=== PATIENT | male | born 1940 | race American Indian/Alaskan Native ===

== ENCOUNTER 2019-02-27 13:20 | Inpatient (IN) | payer MEDICARE ==
[~2019-02-27] VITALS: Ht 177.8 cm; Wt 91.1 kg
[2019-02-27 13:22] VITALS: BP 222/81
[2019-02-27] MEDS ORDERED: FISH OIL 1,001000 M2 PO (13:26)
[2019-02-27] MEDS ORDERED: PLAVIX 75 MG TA75 M1 PO (13:27)
[2019-02-27] MEDS ORDERED: CENTRUM SILVER1 EAC2 PO (13:27)
[2019-02-27] MEDS ORDERED: ASPIR 8181 MG PO (13:27)
[2019-02-27] MEDS ORDERED: COZAAR 25 MG TA25 M1 PO (13:27)
[2019-02-27] MEDS ORDERED: NOVOLOG100 UNIT/1 SUBQ (13:28)
[2019-02-27 13:41] LABS: ABSOLUTE EOSINOPHILS 0.2 thou/uL (0.0-0.7); ABSOLUTE MONOCYTES 0.5 thou/uL (0.0-1.2); ABSOLUTE NEUTROPHILS 4.6 thou/uL (1.6-8.1); BASOPHILS 0.3 %; EOSINOPHILS 3.3 %; LYMPHOCYTES 27.4 %; MCH 30.3 pg (26.0-34.0); MCHC 33.3 g/dL (28.0-37.0); MCV 90.9 fL (80.0-100.0); MPV 7.2 fl. (7.2-11.1); NUCLEATED RBCS 0 /100WBC; PLATELET COUNT* 248 thou/uL (150-400); RBC 4.62 mil/uL (4.50-6.00); RDW-CV 13.7 % (10.5-14.5); WBC 7.4 thou/uL (4.0-11.0)
[2019-02-27 13:51] LABS: ANION GAP 6 mmol/L (7-16); APTT 26.6 Seconds (25.0-31.3); BUN 21 mg/dL (7-18); CALCIUM 8.9 mg/dL (8.5-10.1); CHLORIDE 103 mmol/L (98-107); CO2 28 mmol/L (21-32); CREATININE 1.2 mg/dL (0.6-1.3); GLUCOSE 148 mg/dL (70-99); POTASSIUM 4.5 mmol/L (3.5-5.1); PROTIME 10.4 Seconds (9.20-11.50); SODIUM 137 mmol/L (136-145)
[2019-02-27 14:15] LABS: ALBUMIN 3.3 g/dL (3.4-5.0); ALKALINE PHOSPHATASE 81 U/L (46-116); CK-MB MASS 2.7 ng/mL (<0.5-3.6); NT-PRO BRAIN NAT PEPTIDE 1018 pg/mL (<300); SGOT 15 U/L (15-37); SGPT 26 U/L (30-65); TOTAL BILIRUBIN 0.3 mg/dL (<0.1-1.0); TROPONIN-I LEVEL <0.06 ng/mL (<0.06)
[2019-02-27 15:13] VITALS: BP 171/63
--- NOTE | 2019-02-27 15:20 | NUR ---
ER ADMIT TO RM 209 ER REPORT GIVEN BY TELEPHONE PRIOR NTO ARRIVAL ASSITED TO BED DENIES PAIN
--- NOTE | 2019-02-27 15:26 | EKG ---
[place] [address] ELECTROCARDIOGRAM REPORT Name: ROSEMARY CRUZ Room: [address] ADM IN M.R.#: [id number] Admission: 02/27/19 Attend Phys: Kandis Cruz Discharge: Date of : 42 Report #: [id number] THIS REPORT FOR: //name// [facility] ED Test Date: 2019-02-27 Test Time: 13:46:21 Pat Name: ROSEMARY DRIVERAVER Department: Room: [facility] Gender: M Electrician Master: TDOWNS : 1940 Requested By: Delfin Francis Order Number: [id number] MD: Rosemary Givens Measurements Intervals [place] Rate: 53 P: 62 [place]: 193 QRS: -9 QRSD: 89 T: 32 QT: 414 QTc: 389 Interpretive Statements Sinus bradycardia Inferior infarct, old Probable anterior infarct, old No previous ECG available for comparison Electronically Signed On 02-27-2019 15:26:26 CDT by Rosemary Givens [email or web address] <ELECTRONICALLY SIGNED> By: Rosemary Givens MD, [facility] 02/27/19 1526 1346 1346 Rosemary Givens MD, FACC /EPI
[2019-02-27 15:30] VITALS: BP 180/69
[2019-02-27] MEDS ORDERED: VITAMIN E400 UNIT PO (17:11)
[2019-02-27 20:00] VITALS: BP 162/46
[2019-02-27 22:39] LABS: URINE BILIRUBIN NEGATIVE (Negative); URINE BLOOD NEGATIVE (Negative); URINE CLARITY CLEAR; URINE COLOR YELLOW; URINE GLUCOSE-RANDOM NEGATIVE (Negative); URINE KETONES NEGATIVE (Negative); URINE LEUKOCYTES-REFLEX NEGATIVE (Negative); URINE NITRITE-REFLEX NEGATIVE (Negative); URINE PROTEIN 2+ (Negative); URINE UROBILINOGEN 0.2 E.U./dl (0.2-1.0)
[2019-02-27 23:00] LABS: BACTERIA-REFLEX 1-9 Few /HPF (None Seen); CASTS None Seen /LPF (None Seen); CRYSTALS None Seen /LPF (None Seen); SQUAMOUS 0-3 Few /LPF (0-3); URINE RBC 0-2 Rare /HPF (0-2); URINE WBC-REFLEX 0-5 Rare /HPF (0-5)
[2019-02-28] VITALS: BP 161/50
[2019-02-28 04:00] VITALS: BP 172/58
[2019-02-28 05:21] LABS: HEMATOCRIT 37.7 % (42.0-52.0); HEMOGLOBIN 12.6 gm/dL (14.0-18.0); MCH 30.3 pg (26.0-34.0); MCHC 33.6 g/dL (28.0-37.0); MCV 90.3 fL (80.0-100.0); MPV 7.3 fl. (7.2-11.1); RBC 4.17 mil/uL (4.50-6.00); RDW-CV 13.9 % (10.5-14.5); WBC 8.1 thou/uL (4.0-11.0)
[2019-02-28 05:32] LABS: CALCIUM 8.9 mg/dL (8.5-10.1); CREATININE 1.2 mg/dL (0.6-1.3); POTASSIUM 4.3 mmol/L (3.5-5.1)
[2019-02-28 05:36] LABS: CHOLESTEROL 190 mg/dL (<200); HDL CHOLESTEROL 33 mg/dL (>40); LDL CHOLESTEROL 128 mg/dL (<100); TC:HDL 5.8 Ratio (Not establshd); TRIGLYCERIDE 147 mg/dL (<150); VLDL 29 mg/dL (<40)
[2019-02-28 05:43] LABS: SERUM ASSESSMENT Clear
--- NOTE | 2019-02-28 07:48 | NUR ---
PT CARE ASSUMED AT 1930. SAT MAINTAINED IN RA. ALERT AND ORIENTED X4. CALL LIGHT WITHIN REACH AND BED IN LOW POSIITON. PRESENT AT BEDSIDE. DENIES PAIN AND SOB. PT PASSED THE BEDSIDE SWALLOW TEST. HOURLY ROUNDING DONE FOR PT SAFETY.
[2019-02-28 08:15] VITALS: BP 188/77
--- NOTE | 2019-02-28 08:15 | NUR ---
ASSUMED PT. CARE AND RECEIVED REPORT AT 0730. PT A/OX4, BP SLIGHTLY ELEVATED, BUT WITH + FOR STROKE. ON RA @ 97%. MONITOR ON TRACING SB. PT. AND REPORT WORSENING LEFT ARM/LEG WEAKNESS OVER NIGHT. NIH COMPLETED, REFER TO CHARTING. PT. INITIALLY WITH NO RESISTANCE TO GRAVITY, HOWEVER DURING ASSESSMENT WITH PHYSICIAN PT. HAD ONLY DRIFT OF LEFT ARM. FULL ASSESSMENT COMPLETED, REFER TO CHARTING. PT. SPOUSE AT BEDSIDE. WILL CONTINUE WITH PLAN OF CARE.
[2019-02-28 11:59] VITALS: BP 186/65
--- NOTE | 2019-02-28 14:18 | 2DMMODE ---
[place] [address] 2 D/M-MODE ECHOCARDIOGRAM Name: RAPPAHANNOCKROSEMARY JOSEPH Room: [address] IN [facility]#: [id number] Admission: 02/27/19 Attend Phys: Micky Michaels Discharge: Date of : 42 Date of Service: 02/28/19 1418 Report #: [id number] THIS REPORT FOR: //name// APPROVED REPORT Study performed: 02/28/2019 11:16:33 EXAM: Comprehensive 2D, Doppler, and color-flow Echocardiogram Patient Location: In-Patient Room #: 209 Status: routine BSA: 2.15 HR: 64 bpm BP: 172/58 mmHg Rhythm: NSR Other Information Study Quality: Adequate Indications CVA/TIA Echo Enhancing Agent Indication: Rule out Shunt Agent(s) / Amount(s) Used: Agitated Saline 10 cc 2D Dimensions IVSd: 11.95 (7-11mm) LVOT Diam: 20.41 (18-24mm) LVDd: 55.24 mm PWd: 11.23 (7-11mm) Ascending Ao: 33.36 (22-36mm) LVDs: 35.97 (25-40mm) Aortic Root: 34.92 mm Volumes Left Atrial Volume (Systole) LA ESV Index: 28.70 mL/m2 Aortic Valve AoV Peak Dwayne.: 1.36 m/s AO Peak Gr.: 7.41 mmHg LVOT Max P.54 mmHg AO Mean Gr.: 3.67 mmHg LVOT Mean P.00 mmHg LVOT Max V: 1.07 m/s AO V2 VTI: 26.53 cm LVOT Mean V: 0.64 m/s ROS (VTI): 3.18 cm2 LVOT V1 VTI: 25.82 [place] [address] 2 D/M-MODE ECHOCARDIOGRAM Name: ROSEMARY CRUZ Room: [address] IN .R.#: [id number] Admission: 02/27/19 Attend Phys: Micky Michaels Discharge: Date of : 42 Date of Service: 02/28/19 1418 Report #: [id number] Mitral Valve E/A Ratio: 0.57 MV Decel. Time: 225.84 ms MV E Max Dwayne.: 0.78 m/s MV PHT: 65.49 ms MVA (PHT): 3.36 cm2 TDI E/Lateral E': 7.80 E/Medial E': 9.75 Medial E' Dwayne.: 0.08 m/s Lateral E' Dwayne.: 0.10 m/s Pulmonary Valve PV Peak Dwayne.: 1.03 m/s PV Peak Gr.: 4.24 mmHg Left Ventricle The left ventricle is normal size. There is normal LV segmental wall motion. Mild concentric left ventricular hypertrophy. Left ventricular systolic function is normal. The left ventricular ejection fraction is within the normal range. LVEF is 55-60%. Grade I - abnormal relaxation pattern. Right Ventricle The right ventricle is normal size. The right ventricular systolic function is normal. Atria The left atrium size is normal. Interatrial septum is intact without evidence of ASD or PFO. The right atrium size is normal. Aortic Valve The Aortic valve is sclerotic. No aortic regurgitation is present. There is no aortic valvular stenosis. Mitral Valve The mitral valve is normal in structure. trace mitral regurgitation. No evidence of mitral valve stenosis. Tricuspid Valve The tricuspid valve is normal in structure. Unable to assess PA pressure. Trace tricuspid regurgitation. Pulmonic Valve The pulmonary valve is normal in structure. There is no pulmon[place] [address] 2 D/M-MODE ECHOCARDIOGRAM Name: ROSEMARY CRUZ Room: [address] IN [facility]#: [id number] Admission: 02/27/19 Attend Phys: Micky Michaels Discharge: Date of : 42 Date of Service: 02/28/19 1418 Report #: [id number] Great Vessels The aortic root is normal in size. IVC is normal in size and collapses >50% with inspiration. Pericardium There is no pericardial effusion. <Conclusion> Mild concentric left ventricular hypertrophy. LVEF is 55-60%. Interatrial septum is intact without evidence of ASD or PFO. <ELECTRONICALLY SIGNED> By: Rosemary Givens MD, [facility] 02/28/19 1418 1418 1418 Rosemary Givens MD, FACC /INF
--- NOTE | 2019-02-28 14:57 | NUR ---
CM spoke with Pt's in [facility]. Pt resides at home with . They are here visiting there dtr in the area, they are from [place]. Pt had been active and independent prior to this hospital stay. No DME. Hx of HH and SNF post CVA in 2013 in [place]. Per , anticipate that Pt will need skilled v. rehab at [place], is hopeful that Pt will be able to dc to [place] to receive therapy, but understands that Pt may need to stay in the area for awhile to receive therapy. Pt/ were planning to return to [place] tomorrow. Following for disposition.
[2019-02-28 16:53] VITALS: BP 192/71
[2019-02-28 19:50] VITALS: BP 147/51
[2019-03-01] VITALS (14 sets, daily range): BP systolic 98–207; BP diastolic 66–129
[2019-03-01 02:06] LABS: GLYCOHEMOGLOBIN (HGB A1C) 7.4 % (4.8-5.6)
[2019-03-01 04:51] LABS: CALCIUM 9.3 mg/dL (8.5-10.1); CREATININE 1.1 mg/dL (0.6-1.3); POTASSIUM 3.8 mmol/L (3.5-5.1)
--- NOTE | 2019-03-01 10:45 | CON ---
[facility] [place] [facility] [address] [place] [address] CONSULTATION Name: ROSEMARY CRUZ Room: [address] IN M.R.#: [id number] Admission: 02/27/19 Attend Phys: Kandis Cruz Discharge: Date of : 42 Report #: [id number] THIS REPORT FOR: //name// CC: DEREK physician/PCP Micky Michaels DATE OF SERVICE: 02/27/2019 This patient was seen by me last night as well as this morning. This is a combined note. HISTORY OF PRESENT ILLNESS: This is a 79-year-old male patient. Both patient and the is a poor historian. He apparently was admitted with some confusion and he was somewhat unstable. This morning, he is complaining of some headache on the right side and some numbness on the left side. He underwent an MRI that demonstrated findings consistent with acute CVA. Symptoms are difficult to assess because this patient has trouble with the vision because of some complication and what he described as a hemorrhage in the eye. REVIEW OF SYSTEMS: A 14-point review of systems is positive for prior history of stent. He said he had a stroke a few years ago. He does not know how the stroke affected him. He says that he has a history of diabetes. He does not provide any other reliable history. That was his relevant 14-point review of system. PAST MEDICAL HISTORY: Positive for stroke, how did that affect him is not very clear. FAMILY HISTORY: Negative for early age stroke. SOCIAL HISTORY: He had family with them and I am not sure whether the patient or the family understands things well. PHYSICAL EXAMINATION: Indicate that this patient is alert. His memory is poor. I do not know what his baseline is. He has visual deficit, but I cannot tell because he has baseline visual deficit. He moves all 4 extremities. He is complaining of paraesthesia on the left side. No change in cardiac status. Blood pressure is 186/65, respirations 16, pulse is 52, and temperature is 98.6. LABORATORY DATA: Indicates a white count of 8.1 and sodium is 140. MRI was reviewed and it showed a stroke. His sed rate is normal. IMPRESSION: Occipital lobe stroke. He has some more symptoms. We will repeat the CAT scan to make sure the stroke did not become hemorrhagic. He is on combination of aspirin and Plavix and statin. Until we can document atrial fibrillation, I am not sure what else can be done; however, [place] [address] CONSULTATION Name: ROSEMARY CRUZ Room: [address] IN [facility]#: [id number] Admission: 02/27/19 Attend Phys: Kandis Cruz Discharge: Date of : 42 Report #: [id number] requires extensive workup to exclude the possibility of atrial fibrillation because this patient's stroke is in the posterior cerebral artery distribution and a source of embolization from the heart need to be excluded. more than 50 minutes of combined time was spent taking care of this patient and majority of that time was spent counseling and coordinating his care <ELECTRONICALLY SIGNED> By: Eladio Forrest MD 03/01/19 1045 1416 [id number] Forrest MD /nt
--- NOTE | 2019-03-01 11:14 | TEE ---
[place] [address] TRANSESOPHAGEAL ECHOCARDIOGRAM Name: ANTHONYROSEMARY Room: [address] IN [facility]#: [id number] Admission: 02/27/19 Attend Phys: Micky Michaels Discharge: Date of : 42 Date of Service: 03/01/19 1114 Report #: [id number] THIS REPORT FOR: //name// APPROVED REPORT Study performed: 03/01/2019 09:21:15 EXAM: Transesophageal Echocardiogram Patient Location: In-Patient Room #: [facility] Status: routine BSA: 2.14 HR: 77 bpm BP: 171/79 mmHg Rhythm: NSR Other Information Study Quality: Excellent Indications CVA/TIA Echo Enhancing Agent Indication: Rule out Shunt Agent(s) / Amount(s) Used: Agitated Saline 20 cc Comments: 2 BUBBLE STUDIES Procedure After obtaining informed consent, patient underwent transesophageal echo in the [employer]. Type of Sedation : Conscious Sedation Sedation was administered by Cary Matos RN. Sedation start time: 926 Case end Time: 941 Sedation was achieved intravenously with: Versed (4) Fentanyl (25) Transesophageal probe was inserted and advanced into esophagus without difficulty by Rosemary Givens MD, FACC. Echo enhancement indication: R/O Septal defect. Echo enhancement agent administered: Agitated Saline The OMAIRA was performed without complications. Throughout the procedure, the blood pressure, pulse oximetry, cardiac rhythm, and rate were monitored. The patient tolerated the procedure without adverse effects. Recovery from conscious sedation was uneventful and vital signs were stable. [address] [address] TRANSESOPHAGEAL ECHOCARDIOGRAM Name: ROSEMARY CRUZ Room: [address] IN [facility].#: [id number] Admission: 02/27/19 Attend Phys: Micky Michaels Discharge: Date of : 42 Date of Service: 03/01/19 1114 Report #: [id number] Left Ventricle The left ventricle is normal size. There is normal LV segmental wall motion. There is normal left ventricular wall thickness. Left ventricular systolic function is normal. The left ventricular ejection fraction is within the normal range. LVEF is 55-60%. Right Ventricle The right ventricle is normal size. The right ventricular systolic function is normal. Atria The left atrium size is normal. No thrombus is visualized in the left atrium or appendage. Interatrial septum is intact without evidence of ASD or PFO. The right atrium size is normal. Aortic Valve The aortic valve is normal in structure. No aortic regurgitation is present. There is no aortic valvular stenosis. Mitral Valve The mitral valve is normal in structure. There is no mitral valve regurgitation noted. No evidence of mitral valve stenosis. Tricuspid Valve The tricuspid valve is normal in structure. There is no tricuspid valve regurgitation noted. Pulmonic Valve The pulmonary valve is normal in structure. There is no pulmonic valvular regurgitation. Great Vessels The aortic root is normal in size. Pericardium There is no pericardial effusion. <Conclusion> LVEF is 55-60%. The left atrium size is normal. No thrombus is visualized in the left atrium or [address] [address] TRANSESOPHAGEAL ECHOCARDIOGRAM Name: ROSEMARY CRUZ Room: [address] IN [facility].#: [id number] Admission: 02/27/19 Attend Phys: Micky Michaels Discharge: Date of : 42 Date of Service: 03/01/19 111 Report #: [id number] appendage. Interatrial septum is intact without evidence of ASD or PFO. <ELECTRONICALLY SIGNED> By: Rosemary Givens MD, FACC 03/01/19 1114 13 13 Rosemary Givens MD, FACC /INF
--- NOTE | 2019-03-01 14:50 | CON ---
[facility] [address] [place] [address] CONSULTATION Name: ROSEMARY CRUZ Room: [address] IN M.R.#: [id number] Admission: 02/27/19 Attend Phys: Kandis Cruz Discharge: Date of : 42 Report #: [id number] THIS REPORT FOR: //name// CC: DEREK physician/PCP Micky Michaels DATE OF SERVICE: 02/28/2019 HISTORY OF PRESENT ILLNESS: The patient is a 79-year-old male who I was asked to see in the hospital today because of his history of coronary artery disease. Unfortunately, no old records are available. The patient has an extensive and complicated past medical history. He and his live in [place] and were visiting daughter here in [place]. He has had a long history of coronary artery disease. He has had multiple coronary artery stents including a stent placed in [place], [place] and [place], [place]. He has also had a previous stroke with left-sided weakness. He is not very active at this time. The patient was doing well until yesterday morning when he awakened, apparently was confused and unsteady. He had difficulty eating. His brought him to the Emergency Room. He was felt to have a stroke. Because of his history of coronary artery disease, Cardiology consultation was requested. The patient denies any recent chest pain. He does have some shortness of breath. Denied any palpitations, syncope, bleeding. PAST MEDICAL HISTORY: He has had tonsillectomy, glaucoma eye surgery. He has restless leg syndrome, diabetes, hypertension, hyperlipidemia. MEDICATIONS: Include losartan, aspirin, and Plavix. ALLERGIES: HE CANNOT TOLERATE STATIN DRUGS. FAMILY HISTORY: His father had a stroke. SOCIAL HISTORY: He is . He and his live in [place]. He is a coding file clerk. No smoking. Rarely drinks alcohol. REVIEW OF SYSTEMS: He has had no history of asthma. No history of liver disease, peptic ulcer disease, kidney disease, cancer, psychiatric illness, chronic skin condition. PHYSICAL EXAMINATION: GENERAL: Revealed an elderly male sitting in chair. He appeared in no distress. VITAL SIGNS: He had a blood pressure of 160/80, pulse 60. He is afebrile. HEENT: He was anicteric. Conjunctivae pink. Mucous membranes moist. NECK: Veins do not appear distended. Neck is supple. CHEST: [place] [address] CONSULTATION Name: ROSEMARY CRUZ Room: [address]#: [id number] Admission: 02/27/19 Attend Phys: Kandis Cruz Discharge: Date of : 42 Report #: [id number] CARDIOVASCULAR: Regular rate and rhythm. ABDOMEN: Obese. EXTREMITIES: Had no edema. SKIN: Cool and dry. NEUROLOGIC: He had weakness of the left arm and leg. His ECG showed sinus bradycardia, evidence of previous inferior infarction. His workup so far, he had an echocardiogram that showed left ventricular hypertrophy, ejection fraction of 55%. No evidence of intraatrial shunt by bubble study. His x-rays since he was admitted, he had a CT scan of the head that showed cerebral atrophy, no acute process. His chest x-ray showed cardiomegaly. MRA of the carotids showed no significant stenosis. MRI of the head showed scattered small acute areas of infarction involving the right posterior cerebral artery territory including the right occipital and corpus callosum as well as the thalamus. LABORATORY WORK: Sodium 140, creatinine 1.2, albumin 3.3. Troponin 0.06. BNP 1320. Cholesterol 190, triglyceride 147, HDL 33, LDL 128. White blood cell count 8.1, hemoglobin 12.6. IMPRESSION AND RECOMMENDATIONS: 1. Multiple strokes. No significant carotid stenosis. The patient has been on aspirin and Plavix. I would consider starting antiarrhythmic therapy. I would consider giving the patient an outpatient event recorder to monitor for atrial fibrillation. 2. Coronary artery disease. Previous stenting. No recent angina. 3. Diabetes. 4. Hypertension. The patient is on an ARB. 5. Hyperlipidemia. The patient cannot tolerate statin drugs. I would consider Zetia. 6. History of glaucoma. <ELECTRONICALLY SIGNED> By: Rosemary Givens MD, [facility] 03/01/19 1450 1518 [id number] Givens MD, FAC /nt
--- NOTE | 2019-03-01 18:30 | NUR ---
ASSUMED PT CARE AT 0700, PT A&O X4, LETHARGIC, WATER/WASTEWATER PROJECT MANAGER TRACING SINUS NICOLE-SINUS RHYTHM, HYPERTENSIVE, PRN MEDS ON BOARD WELL NEW ORDERS TO INCREASE BP MEDS, DR SANDS NOTIFIED OF DIFFERENCE BETWEEN BLOOD PRESSURES ON EACH ARM, LIMB ALERT PLACED ON LUE D/T LEFT SIDED WEAKNESS. PT HAD REPEAT MRI, RESULTS CHARTED, CONSULT FOR REHAB PLACED THIS SHIFT. HOURLY ROUNDING AND Q2 HOUR TURNS COMPLETED.
[2019-03-02] VITALS: BP 198/60
[2019-03-02 04:00] VITALS: BP 182/78
--- NOTE | 2019-03-02 06:36 | NUR ---
PT CARE ASSUMED AT 1930. SAT MAINTAINED IN . [facility] DONE AND CHARTED. DENIES PAIN AND SOB. CALL LIGHT WITHIN REACH AND BED IN LOW POSITION. SPOUSE PRESENT AT BEDSIDE. PT SEEMS CONFUSED AT TIMES BUT A&O X4. HOURLY ROUNDING DONE FOR PT SAFETY.
[2019-03-02 08:00] VITALS: BP 169/71
--- NOTE | 2019-03-02 11:30 | NUR ---
CONTINUE TO FOLLOW. AWAITING REHAB [facility]. PT AND ARE INTERESTED IN REHAB HERE IF QUALIFIES, STATED PT HAS TO BE ABLE TO MANAGE TO GET IN AND OUT OF CAR AND AMBULATE SOME IN ORDER FOR THEM TO RETURN TO THEIR HOME IN [place]. SPOKE WITH ROXANE/REHAB LIASON, JOSIE VALENTE
[2019-03-02 12:04] VITALS: BP 116/48
[2019-03-02 15:41] VITALS: BP 113/50
[2019-03-02] MEDS ORDERED: REQUIP 0.25 M0.25 M1 PO (18:29)
[2019-03-02 18:32] VITALS: BP 113/50
[2019-03-02] MEDS ORDERED: MELATONIN5 M1 PO (21:19)
--- NOTE | 2019-03-02 22:00 | NUR ---
PT TRANSFERED TO INPATIENT REHAB VIA BED AT 2044. IV LINE REMOVED, ANSWERED PT/FAMILY QUESTIONS PRIOR TO DISCHARGE.
== END 2019-03-02 20:46 | DRG 64 ==
LOC: M.ERS 13:20 → M.2W 14:18 → M.TBA-ER 14:18 → M.2W 15:20
PROVIDERS: Family Medicine; ADMIT Internal Medicine
DX: I63.531 Cerebral infarction due to unspecified occlusion or stenosis of right posterior cerebral artery (principal); G93.41 Metabolic encephalopathy; N17.9 Acute kidney failure, unspecified; G45.9 Transient cerebral ischemic attack, unspecified; E44.1 Mild protein-calorie malnutrition; G81.91 Hemiplegia, unspecified affecting right dominant side; I16.0 Hypertensive urgency; G25.81 Restless legs syndrome; E11.9 Type 2 diabetes mellitus without complications; E78.5 Hyperlipidemia, unspecified; I11.0 Hypertensive heart disease with heart failure; I25.10 Atherosclerotic heart disease of native coronary artery without angina pectoris; E86.0 Dehydration; I50.9 Heart failure, unspecified; R00.1 Bradycardia, unspecified; G47.00 Insomnia, unspecified; E78.00 Pure hypercholesterolemia, unspecified; I48.91 Unspecified atrial fibrillation; Z95.5 Presence of coronary angioplasty implant and graft; I25.2 Old myocardial infarction; Z82.3 Family history of stroke; Z68.28 Body mass index [BMI] 28.0-28.9, adult; Z79.4 Long term (current) use of insulin

== ENCOUNTER 2019-03-02 18:38 | Inpatient (IN) | payer MEDICARE ==
[~2019-03-02] VITALS: Ht 177.8 cm; Wt 94.8 kg
[~2019-03-02 18:38] MED LIST: ASPIR 8181 MG PO; CENTRUM SILVER1 EAC2 PO; COZAAR 25 MG TA25 M1 PO; FISH OIL 1,001000 M2 PO; NOVOLOG100 UNIT/1 SUBQ; PLAVIX 75 MG TA75 M1 PO; REQUIP 0.25 M0.25 M1 PO; VITAMIN E400 UNIT PO
[2019-03-02] MEDS ORDERED: MELATONIN5 M1 PO (21:19)
[2019-03-03 00:29] VITALS: BP 174/79
[2019-03-03 08:00] VITALS: BP 173/61
[2019-03-03 09:13] LABS: HEMATOCRIT 38.6 % (42.0-52.0); HEMOGLOBIN 12.9 gm/dL (14.0-18.0); MCH 30.3 pg (26.0-34.0); MCHC 33.5 g/dL (28.0-37.0); MCV 90.6 fL (80.0-100.0); RBC 4.25 mil/uL (4.50-6.00); RDW-CV 13.5 % (10.5-14.5); WBC 7.5 thou/uL (4.0-11.0)
[2019-03-03 09:18] LABS: CALCIUM 8.3 mg/dL (8.5-10.1); CREATININE 1.2 mg/dL (0.6-1.3); POTASSIUM 3.8 mmol/L (3.5-5.1)
[2019-03-03 20:34] VITALS: BP 111/66
[2019-03-04 07:55] VITALS: BP 207/82
[2019-03-04 20:00] VITALS: BP 152/51
[2019-03-05 07:59] VITALS: BP 185/64
[2019-03-05 14:00] VITALS: BP 158/62
[2019-03-05 15:05] VITALS: BP 167/61
[2019-03-05 19:30] VITALS: BP 171/61
[2019-03-06 06:00] VITALS: BP 204/76
[2019-03-06 08:16] VITALS: BP 161/62
[2019-03-06 19:55] VITALS: BP 159/59
[2019-03-07 03:40] VITALS: BP 196/76
[2019-03-07 06:00] VITALS: BP 174/64
[2019-03-07 07:00] VITALS: BP 186/66
[2019-03-07 20:00] VITALS: BP 179/75
[2019-03-08 05:45] VITALS: BP 155/64
[2019-03-08 08:30] VITALS: BP 151/63
[2019-03-08 20:00] VITALS: BP 163/66
[2019-03-09 08:00] VITALS: BP 145/65
[2019-03-09 20:00] VITALS: BP 139/53
[2019-03-10 06:23] VITALS: BP 186/65
[2019-03-10 08:24] VITALS: BP 169/71
[2019-03-10 19:53] VITALS: BP 146/61
[2019-03-11 08:09] VITALS: BP 156/59
[2019-03-11 19:30] VITALS: BP 159/59
[2019-03-12 08:19] VITALS: BP 145/52
[2019-03-12 19:30] VITALS: BP 165/56
[2019-03-13 07:30] VITALS: BP 150/68
[2019-03-13 19:30] VITALS: BP 180/67
[2019-03-14 03:07] LABS: GLYCOHEMOGLOBIN (HGB A1C) 7.1 % (4.8-5.6)
[2019-03-14 08:00] VITALS: BP 148/58
[2019-03-14 19:30] VITALS: BP 169/68
[2019-03-15 07:52] VITALS: BP 139/48
[2019-03-15 20:00] VITALS: BP 138/53
[2019-03-16 08:01] VITALS: BP 153/58
[2019-03-16 20:00] VITALS: BP 135/53
[2019-03-17 08:46] VITALS: BP 165/59
[2019-03-17 20:00] VITALS: BP 147/48
[2019-03-18 08:00] VITALS: BP 178/67
[2019-03-19 08:15] VITALS: BP 135/57
[2019-03-19 14:30] VITALS: BP 109/47
[2019-03-19 20:30] VITALS: BP 128/62
[2019-03-20 07:20] VITALS: BP 168/56
[2019-03-20 19:30] VITALS: BP 129/49
[2019-03-21 07:30] VITALS: BP 132/52
[2019-03-21 08:13] LABS: ABSOLUTE EOSINOPHILS 0.3 thou/uL (0.0-0.7); ABSOLUTE LYMPHOCYTES 1.7 thou/uL (0.8-5.3); ABSOLUTE MONOCYTES 0.4 thou/uL (0.0-1.2); ABSOLUTE NEUTROPHILS 3.6 thou/uL (1.6-8.1); BASOPHILS 0.4 %; EOSINOPHILS 4.6 %; HEMATOCRIT 37.5 % (42.0-52.0); HEMOGLOBIN 12.5 gm/dL (14.0-18.0); LYMPHOCYTES 27.9 %; MCH 30.2 pg (26.0-34.0); MCHC 33.5 g/dL (28.0-37.0); MCV 90.2 fL (80.0-100.0); MONOCYTES 6.5 %; MPV 7.1 fl. (7.2-11.1); NUCLEATED RBCS 0 /100WBC; PLATELET COUNT* 234 thou/uL (150-400); POLYS 60.6 %; RBC 4.16 mil/uL (4.50-6.00); RDW-CV 13.5 % (10.5-14.5)
[2019-03-21 08:22] LABS: CALCIUM 8.7 mg/dL (8.5-10.1); CREATININE 1.3 mg/dL (0.6-1.3); MAGNESIUM 2.3 mg/dL (1.8-2.4); POTASSIUM 4.6 mmol/L (3.5-5.1)
[2019-03-21 19:50] VITALS: BP 166/58
[2019-03-22 08:00] VITALS: BP 168/61
[2019-03-22 19:54] VITALS: BP 133/50
[2019-03-23 08:17] VITALS: BP 151/58
[2019-03-23 19:30] VITALS: BP 138/53
[2019-03-24 08:17] VITALS: BP 139/57
[2019-03-24] MEDS ORDERED: CELEXA20 MG PO (10:36)
[2019-03-24] MEDS ORDERED: COLACE100 MG PO (10:41)
[2019-03-24] MEDS ORDERED: FIBERCON625 M1 PO (10:44)
[2019-03-24] MEDS ORDERED: GLUCOTROL5 MG PO ×3 (10:46→12:09)
[2019-03-24] MEDS ORDERED: LIPITOR40 MG PO (10:49)
[2019-03-24] MEDS ORDERED: MIRALAX17 GM PO (10:50)
[2019-03-24] MEDS ORDERED: NEURONTIN100 MG PO (10:56)
[2019-03-24] MEDS ORDERED: NORVASC10 MG PO ×2 (10:59→12:08)
[2019-03-24 11:09] VITALS: BP 139/57
[2019-03-24 11:26] VITALS: BP 139/57
[2019-03-24] MEDS ORDERED: COZAAR 25 MG TA25 M1 PO (12:08)
[2019-03-24] MEDS ORDERED: HUMALOG100 UNIT/1 SUBQ (12:08)
[2019-03-24 16:05] VITALS: BP 139/57
== END 2019-03-24 15:35 | DRG 56 ==
LOC: M.REH 18:38
PROVIDERS: Family Medicine; ADMIT Physical Medicine & Rehabilitation
DX: I69.354 Hemiplegia and hemiparesis following cerebral infarction affecting left non-dominant side (principal); I63.9 Cerebral infarction, unspecified; G93.40 Encephalopathy, unspecified; I25.10 Atherosclerotic heart disease of native coronary artery without angina pectoris; I10 Essential (primary) hypertension; R13.10 Dysphagia, unspecified; E11.9 Type 2 diabetes mellitus without complications; R51 Headache; R00.1 Bradycardia, unspecified; K59.00 Constipation, unspecified; R33.9 Retention of urine, unspecified; Z79.899 Other long term (current) drug therapy; Z79.4 Long term (current) use of insulin; Z95.5 Presence of coronary angioplasty implant and graft; I25.2 Old myocardial infarction; Z86.73 Personal history of transient ischemic attack (TIA), and cerebral infarction without residual deficits

== ENCOUNTER 2019-03-28 23:38 | Emergency (ER) | payer MEDICARE ==
[~2019-03-28] VITALS: Ht 177.8 cm; Wt 94.8 kg
[~2019-03-28 23:38] MED LIST changes: +CELEXA20 MG PO; +COLACE100 MG PO; +FIBERCON625 M1 PO; +GLUCOTROL5 MG PO; +HUMALOG100 UNIT/1 SUBQ; +LIPITOR40 MG PO; +MELATONIN5 M1 PO; +MIRALAX17 GM PO; +NEURONTIN100 MG PO; +NORVASC10 MG PO
[2019-03-29 00:01] LABS: ABSOLUTE EOSINOPHILS 0.3 thou/uL (0.0-0.7); ABSOLUTE LYMPHOCYTES 2.2 thou/uL (0.8-5.3); ABSOLUTE MONOCYTES 0.5 thou/uL (0.0-1.2); BASOPHILS 0.5 %; EOSINOPHILS 3.9 %; HEMOGLOBIN 12.1 gm/dL (14.0-18.0); LYMPHOCYTES 30.8 %; MCH 30.5 pg (26.0-34.0); MCHC 34.7 g/dL (28.0-37.0); MCV 88.1 fL (80.0-100.0); MONOCYTES 7.5 %; MPV 7.5 fl. (7.2-11.1); NUCLEATED RBCS 0 /100WBC; PLATELET COUNT* 215 thou/uL (150-400); POLYS 57.3 %; RBC 3.97 mil/uL (4.50-6.00); RDW-CV 13.5 % (10.5-14.5)
[2019-03-29 00:14] LABS: INR 1.1; PROTIME 11.3 Seconds (9.20-11.50)
[2019-03-29 00:20] LABS: ANION GAP 6 mmol/L (7-16); BUN 27 mg/dL (7-18); CALCIUM 8.3 mg/dL (8.5-10.1); CHLORIDE 107 mmol/L (98-107); CO2 25 mmol/L (21-32); CREATININE 1.4 mg/dL (0.6-1.3); GLUCOSE 115 mg/dL (70-99); POTASSIUM 4.5 mmol/L (3.5-5.1); SODIUM 138 mmol/L (136-145)
[2019-03-29 00:31] LABS: ALBUMIN 2.8 g/dL (3.4-5.0); ALKALINE PHOSPHATASE 75 U/L (46-116); NT-PRO BRAIN NAT PEPTIDE 359 pg/mL (<300); SGOT 21 U/L (15-37); SGPT 25 U/L (30-65); TOTAL BILIRUBIN 0.3 mg/dL (<0.1-1.0); TOTAL PROTEIN 5.8 g/dL (6.4-8.2); TROPONIN-I LEVEL <0.06 ng/mL (<0.06)
[2019-03-29 04:47] VITALS: BP 137/88
--- NOTE | 2019-03-29 09:53 | EKG ---
[place] [address] ELECTROCARDIOGRAM REPORT Name: ROSEMARY CRUZ [id number] Admission: 03/28/19 Attend Phys: Discharge: 03/29/19 Date of : 42 Report #: [id number] THIS REPORT FOR: //name// [facility] ED Test Date: 2019-03-28 Test Time: 23:44:43 Pat Name: ROSEMARY CRUZ Department: Room: Gender: M Bodybuilder: : 1940 Requested By: Precious Ratliff Order Number: [id number] MD: Rosemary Givens Measurements Intervals [place] Rate: 50 P: 73 DE: 191 QRS: -4 QRSD: 96 T: 86 QT: 404 QTc: 369 Interpretive Statements Sinus bradycardia Inferior infarct, old Consider anterior infarct Compared to ECG 02/27/2019 13:46:21 no change Electronically Signed On 03-29-2019 9:53:16 CDT by Rosemary Givens [email or web address] <ELECTRONICALLY SIGNED> By: Rosemary Givens MD, [facility] 03/29/19 0953 2344 4424 Rosemary Givens MD, FACC /EPI
== END 2019-03-29 04:47 | disposition home or self-care (01) ==
LOC: M.ERS 23:38
PROVIDERS: Emergency Medicine
DX: I26.99 Other pulmonary embolism without acute cor pulmonale (principal); I10 Essential (primary) hypertension; I25.10 Atherosclerotic heart disease of native coronary artery without angina pectoris; E78.5 Hyperlipidemia, unspecified; E11.9 Type 2 diabetes mellitus without complications; Z86.73 Personal history of transient ischemic attack (TIA), and cerebral infarction without residual deficits; Z87.440 Personal history of urinary (tract) infections; Z86.2 Personal history of diseases of the blood and blood-forming organs and certain disorders involving the immune mechanism; Z95.5 Presence of coronary angioplasty implant and graft; Z79.4 Long term (current) use of insulin